=== PATIENT | female | born 1990 | race Caucasian/White ===

== ENCOUNTER → 2016-11-19 | Outpatient (CLI) | payer BC, OTHER ==
[2016-11-22 21:34] LABS: VARICELLA ZOS VIR IGM AB <=0.90 (<=0.90)
== END | disposition home or self-care (01) ==
LOC: C.LABBFT 14:36
PROVIDERS: ATTEND Internal Medicine
DX: Z00.00 Encounter for general adult medical examination without abnormal findings (principal); Z02.1 Encounter for pre-employment examination

== ENCOUNTER 2020-02-06 04:37 | Inpatient (IN) ==
--- NOTE | 2020-02-06 05:11 | Emergency Department Note ---
Impression & Plan Rich, Hallucinations ED Provider Note NAME: JAY MONZON AGE: 29 SEX: F ARRIVES VIA: Family Vehicle INFORMANT: Patient ED PROVIDER(S): Simi Nelson DO CHIEF COMPLAINT: Acute rich PLAN: Disposition: The case was signed out to awaiting bed placement MEDICAL DECISION MAKING: This is a 29-year-old female patient with a history of bipolar disorder who presents emergency department having an acute manic episode over the past 3 months. The patient is not sleeping and is having hallucinations. She is feeling hopeless and is unable to care for herself appropriately. The patient has been to 3 different facilities requesting admission to the hospital for medication adjustment. The patient's psychiatrist is suggesting inpatient psychiatric care. The case will be signed out to doctor Lutz awaiting bed placement. Triage Nursing notes reviewed and agree them. The ED psychiatric transplant case manager spoke with the patient's mother in the waiting room and she agrees that the patient requires inpatient psychiatric care Vital Signs: reviewed and unremarkable Differential diagnosis: Alcohol intoxication, mood disorder, thought disorder Laboratory studies: See below HPI: arrives for evaluation of acute rich. The patient has a history of bipolar disorder and has not been sleeping regularly for the past 3 months. She describes suffering from acute manic episodes. The patient states during this episode, she has not slept in the past 5 days and has been hallucinating. She feels very hopeless. Patient states that she has been to [facility] in [place] in the past couple of days for evaluation of the same symptoms but they have refused to admit her for inpatient psychiatric care stating that she does not meet criteria. The patient is very frustrated. She explains that her psychiatrist, Dr. Tayler Pleitez, is requesting that she be admitted for inpatient psychiatric care for acute rich. The patient does admit to drinking some alcohol last night. She occasionally does smoke marijuana to help her sleep. The patient has had previous inpatient psychiatric stays at [facility] last summer and [place] 1.5 months ago. ROS: See above HPI for pertinent positives & negatives. A total of 10 systems reviewed and were otherwise negative. 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 Extraocular eye muscles are intact, and sclera are anicteric. Nose - moist nasal mucosa without discharge. Mouth - moist buccal mucosa. Oropharynx is nonerythematous and there is no tonsillar exudate or edema noted. Neck: Supple; no thyromegaly Heart: Tachycardic rate and regular rhythm. There is a normal S1 and S2 with no murmurs, clicks, or gallops appreciated. Lungs: Clear to auscultation bilaterally with no wheezes, rales, or rhonchi. Abdomen: Soft, completely nontender, nondistended, with good bowel sounds. There are no palpable pulsatile masses or hepatosplenomegaly. There is no guarding, rigidity, or rebound noted. Extremities: No evidence of cyanosis, clubbing, or edema. There are easily palpable peripheral pulses. Skin: warm and dry with good turgor and no rashes. Psych: The patient appears manic; she smells of alcohol; she has a tangential thought process. She has an elevated affect. She makes good eye contact. She denies being suicidal or homicidal. ED COURSE: Times/Reassessments: 0455: The patient was evaluated in room A5. A complete history and physical was performed. The patient is requesting inpatient psychiatric hospitalization. Labs were drawn as above 0620: I discussed the case with the ED psychiatric transplant case manager. She had discussed the situation with the patient's mother who also agrees that the patient requires inpatient psychiatric care 0630: The case will be signed out to Dr. Lutz at change of shift awaiting bed placement. Simi Nelson DO Past Med/Surg History Social History Smoking Status: Current every day smoker Tobacco Type: E-cigarettes / Vaping Feels Safe at Home: Yes Allergies Allergies Allergy/AdvReac Type Severity Reaction Status Date / Time No Known Allergies Allergy Verified 03/03/19 08:56 Home Meds Home Medications Medication Instructions Recorded Confirmed aripiprazole [Abilify] 15 mg PO DAILY 02/06/20 02/06/20 clonazepam [Klonopin] 1 mg PO DIRECTED 02/06/20 02/06/20 hydroxyzine HCl 50 mg PO DAILY 02/06/20 02/06/20 lamotrigine [Lamictal] 200 mg PO DAILY 02/06/20 02/06/20 trazodone 50 mg PO HS 02/06/20 02/06/20 Results & Data (ED) Vital Signs Vital Signs - 24 hr 02/06/20 04:41 02/06/20 06:30 Temperature 36.4 C L Temperature Source Oral Pulse Rate 118 H Pulse Rate [Apical] 98 H Respiratory Rate 18 18 Respiratory Effort / Characteristics Non-Labored Spontaneous Respiratory Depth Normal Blood Pressure 105/70 Blood Pressure [Left Arm] 118/75 Blood Pressure Mean 81 Blood Pressure Mean [Left Arm] 89 Blood Pressure Position Sitting Pulse Oximetry 99 100 Oxygen Delivery Method Room Air Room Air Sepsis Recent Fever Within 48 Hours No Sepsis New/Unexplained Change in Mental Status No Sepsis Action Taken by Nursing No Action Required Laboratory Data Result diagrams: 02/06/20 05:10 02/06/20 05:10 Lab Results 02/06/20 02/06/20 02/06/20 Range/Units 04:50 04:50 04:50 WBC (4.8-10.8) K/uL RBC (4.2-5.4) M/uL Hgb (12.0-16.0) g/dL Hct (37-47) % MCV (80-100) fL MCH (25-34) pg MCHC (32-36) g/dL Plt Count (130-400) K/uL Immature Gran % (Auto) % Neut % (Auto) % Lymph % (Auto) % [place] % (Auto) % Eos % (Auto) % Baso % (Auto) % Neut # (Auto) (1.4-6.5) K/uL Lymph # (Auto) (1.2-3.4) K/uL [place] # (Auto) (0.11-0.59) K/uL Eos # (Auto) (0-0.5) K/uL Baso # (Auto) (0-0.2) K/uL Immature Gran # (Auto) (0.00-0.02) K/uL Sodium (136-145) mmol/L Potassium (3.5-5.1) mmol/L Chloride (98-107) mmol/L Carbon Dioxide (21-32) mmol/L Anion Gap (3-11) BUN (7-18) mg/dl Creatinine (0.6-1.2) mg/dl Est Cr Clr Drug Dosing ml/min Est GFR ( Amer) Est GFR (Non-Af Amer) BUN/Creatinine Ratio (10-20) Glucose (70-99) mg/dl Calcium (8.5-10.1) mg/dl Total Bilirubin (0.2-1) mg/dl AST (15-37) U/L ALT (12-78) U/L Alkaline Phosphatase (45-117) U/L Total Protein (6.4-8.2) gm/dl Albumin (3.4-5.0) gm/dl Globulin (2.5-4.0) gm/dl Albumin/Globulin Ratio (0.9-2) TSH (0.300-4.500) uIu/ml HCG, Qual (Negative) Urine Color Yellow Urine Appearance Clear (Clear) Urine pH 6.0 (4.5-7.5) Ur Specific [place] <= 1.005 (1.000-1.030) Urine Protein Negative (Negative) Urine Glucose (UA) Negative (Negative) Urine Ketones Negative (Negative) Urine Blood Negative (Negative) Urine Nitrite Negative (Negative) Urine Bilirubin Negative (Negative) Urine Urobilinogen Negative (Negative) Ur Leukocyte Esterase 2+ H (Negative) Urine RBC 0-4 (0-4) /hpf Urine WBC 10-30 H (0-5) /hpf Ur Epithelial Cells 20-30 H (0-5) /lpf Urine Bacteria Negative (Negative) Urine Test Negative (Negative) Salicylates (2.8-20) mg/dl Urine Opiates Screen Neg (Neg) Ur Methadone, Qual Neg (Neg) Acetaminophen (10-30) ug/ml Urine Barbiturates Neg (Neg) Ur Phencyclidine (PCP) Neg (Neg) U Amphetamin/Meth Scrn Neg (Neg) MDMA (Ecstasy) Screen Neg (Neg) U Benzodiazepines Scrn Neg (Neg) Ur Cocaine Metabolite Neg (Neg) U Marijuana (THC) Screen Pos H (Neg) Ethyl Alcohol mg/dL (0-3) mg/dl 02/06/20 02/06/20 02/06/20 Range/Units 05:10 05:10 05:10 WBC 6.84 (4.8-10.8) K/uL RBC 4.33 (4.2-5.4) M/uL Hgb 13.0 (12.0-16.0) g/dL Hct 36.9 L (37-47) % MCV 85.2 (80-100) fL MCH 30.0 (25-34) pg MCHC 35.2 (32-36) g/dL Plt Count 231 (130-400) K/uL Immature Gran % (Auto) 0.3 % Neut % (Auto) 64.2 % Lymph % (Auto) 26.8 % [place] % (Auto) 6.6 % Eos % (Auto) 1.8 % Baso % (Auto) 0.3 % Neut # (Auto) 4.40 (1.4-6.5) K/uL Lymph # (Auto) 1.83 (1.2-3.4) K/uL [place] # (Auto) 0.45 (0.11-0.59) K/uL Eos # (Auto) 0.12 (0-0.5) K/uL Baso # (Auto) 0.02 (0-0.2) K/uL Immature Gran # (Auto) 0.02 (0.00-0.02) K/uL Sodium 140 (136-145) mmol/L Potassium 3.7 (3.5-5.1) mmol/L Chloride 111 H (98-107) mmol/L Carbon Dioxide 22 (21-32) mmol/L Anion Gap 7.0 (3-11) BUN 11 (7-18) mg/dl Creatinine 0.84 (0.6-1.2) mg/dl Est Cr Clr Drug Dosing 97.0 ml/min Est GFR ( Amer) 109.6 Est GFR (Non-Af Amer) 94.6 BUN/Creatinine Ratio 12.7 (10-20) Glucose 108 H (70-99) mg/dl Calcium 8.1 L (8.5-10.1) mg/dl Total Bilirubin 0.5 (0.2-1) mg/dl AST 11 L (15-37) U/L ALT 17 (12-78) U/L Alkaline Phosphatase 56 (45-117) U/L Total Protein 7.2 (6.4-8.2) gm/dl Albumin 3.5 (3.4-5.0) gm/dl Globulin 3.7 (2.5-4.0) gm/dl Albumin/Globulin Ratio 0.9 (0.9-2) TSH 1.590 (0.300-4.500) uIu/ml HCG, Qual (Negative) Urine Color Urine Appearance (Clear) Urine pH (4.5-7.5) Ur Specific [place] (1.000-1.030) Urine Protein (Negative) Urine Glucose (UA) (Negative) Urine Ketones (Negative) Urine Blood (Negative) Urine Nitrite (Negative) Urine Bilirubin (Negative) Urine Urobilinogen (Negative) Ur Leukocyte Esterase (Negative) Urine RBC (0-4) /hpf Urine WBC (0-5) /hpf Ur Epithelial Cells (0-5) /lpf Urine Bacteria (Negative) Urine Test (Negative) Salicylates < 1.7 L (2.8-20) mg/dl Urine Opiates Screen (Neg) Ur Methadone, Qual (Neg) Acetaminophen < 2 L (10-30) ug/ml Urine Barbiturates (Neg) Ur Phencyclidine (PCP) (Neg) U Amphetamin/Meth Scrn (Neg) MDMA (Ecstasy) Screen (Neg) U Benzodiazepines Scrn (Neg) Ur Cocaine Metabolite (Neg) U Marijuana (THC) Screen (Neg) Ethyl Alcohol mg/dL (0-3) mg/dl 02/06/20 02/06/20 Range/Units 05:10 05:10 WBC (4.8-10.8) K/uL RBC (4.2-5.4) M/uL Hgb (12.0-16.0) g/dL Hct (37-47) % MCV (80-100) fL MCH (25-34) pg MCHC (32-36) g/dL Plt Count (130-400) K/uL Immature Gran % (Auto) % Neut % (Auto) % Lymph % (Auto) % [place] % (Auto) % Eos % (Auto) % Baso % (Auto) % Neut # (Auto) (1.4-6.5) K/uL Lymph # (Auto) (1.2-3.4) K/uL [place] # (Auto) (0.11-0.59) K/uL Eos # (Auto) (0-0.5) K/uL Baso # (Auto) (0-0.2) K/uL Immature Gran # (Auto) (0.00-0.02) K/uL Sodium (136-145) mmol/L Potassium (3.5-5.1) mmol/L Chloride (98-107) mmol/L Carbon Dioxide (21-32) mmol/L Anion Gap (3-11) BUN (7-18) mg/dl Creatinine (0.6-1.2) mg/dl Est Cr Clr Drug Dosing ml/min Est GFR ( Amer) Est GFR (Non-Af Amer) BUN/Creatinine Ratio (10-20) Glucose (70-99) mg/dl Calcium (8.5-10.1) mg/dl Total Bilirubin (0.2-1) mg/dl AST (15-37) U/L ALT (12-78) U/L Alkaline Phosphatase (45-117) U/L Total Protein (6.4-8.2) gm/dl Albumin (3.4-5.0) gm/dl Globulin (2.5-4.0) gm/dl Albumin/Globulin Ratio (0.9-2) TSH (0.300-4.500) uIu/ml HCG, Qual Negative (Negative) Urine Color Urine Appearance (Clear) Urine pH (4.5-7.5) Ur Specific [place] (1.000-1.030) Urine Protein (Negative) Urine Glucose (UA) (Negative) Urine Ketones (Negative) Urine Blood (Negative) Urine Nitrite (Negative) Urine Bilirubin (Negative) Urine Urobilinogen (Negative) Ur Leukocyte Esterase (Negative) Urine RBC (0-4) /hpf Urine WBC (0-5) /hpf Ur Epithelial Cells (0-5) /lpf Urine Bacteria (Negative) Urine Test (Negative) Salicylates (2.8-20) mg/dl Urine Opiates Screen (Neg) Ur Methadone, Qual (Neg) Acetaminophen (10-30) ug/ml Urine Barbiturates (Neg) Ur Phencyclidine (PCP) (Neg) U Amphetamin/Meth Scrn (Neg) MDMA (Ecstasy) Screen (Neg) U Benzodiazepines Scrn (Neg) Ur Cocaine Metabolite (Neg) U Marijuana (THC) Screen (Neg) Ethyl Alcohol mg/dL 50.0 H (0-3) mg/dl Discharge Plan Visit Data Chief Complaint: Mental Health Evaluation Stated Complaint: MANIC EPISODE ED Provider: Simi Nelson Discharge Problem: Rich, Hallucinations Forms Stand Alone Forms: My [facility], Suicide Prevention Resources Prescriptions Prescriptions: No Action clonazepam [Klonopin] 1 mg tablet 1 mg PO DIRECTED RF: 0 hydroxyzine HCl 50 mg tablet 50 mg PO DAILY RF: 0 trazodone 50 mg tablet 50 mg PO HS RF: 0 aripiprazole [Abilify] 15 mg tablet 15 mg PO DAILY RF: 0 lamotrigine [Lamictal] 200 mg tablet 200 mg PO DAILY RF: 0
[2020-02-06 05:30] LABS: Appearance Urine Clear (Clear); Bilirubin Urine Negative (Negative); Blood Urine Negative (Negative); Color Urine Yellow; Glucose Urine UA Negative (Negative); Ketones Urine Negative (Negative); Leukocyte Esterase Urine 2+ (Negative); Nitrite Urine Negative (Negative); Protein Urine Negative (Negative); Specific Gravity Urine <= 1.005 (1.000-1.030); Urobilinogen Urine Negative (Negative)
[2020-02-06 05:41] LABS: Basophils # (auto) 0.02 K/uL (0-0.2); Basophils % (auto) 0.3 %; Eosinophils # (auto) 0.12 K/uL (0-0.5); Eosinophils % (auto) 1.8 %; Hematocrit (blood only) 36.9 % (37-47); Immature Granulocytes # (auto) 0.02 K/uL (0.00-0.02); Immature Granulocytes % (auto) 0.3 %; Lymphocytes # (auto) 1.83 K/uL (1.2-3.4); Lymphocytes % (auto) 26.8 %; Mean Corpuscular Hgb Conc 35.2 g/dL (32-36); Mean Corpuscular Volume 85.2 fL (80-100); Monocytes # (auto) 0.45 K/uL (0.11-0.59); Monocytes % (auto) 6.6 %; Neutrophils % (auto) 64.2 %; Platelet Count 231 K/uL (130-400); Red Blood Count 4.33 M/uL (4.2-5.4); White Blood Count 6.84 K/uL (4.8-10.8)
[2020-02-06 05:44] LABS: Bacteria Urine Negative (Negative); Epithelial Cell Urine 20-30 /lpf (0-5); RBC Urine 0-4 /hpf (0-4)
[2020-02-06 05:53] LABS: Albumin Level 3.5 gm/dl (3.4-5.0); BUN Creatinine Ratio 12.7 (10-20); Calcium 8.1 mg/dl (8.5-10.1); Est GFR (African American) 109.6; Est GFR (Non-African American) 94.6; Potassium 3.7 mmol/L (3.5-5.1)
[2020-02-06 05:55] LABS: Pregnancy Test, Serum Negative (Negative)
[2020-02-06 05:56] LABS: Acetaminophen < 2 ug/ml (10-30); Salicylate < 1.7 mg/dl (2.8-20)
[2020-02-06 05:56] LABS: Amphetamines+Metham, Urine Neg (Neg); Barbiturates, Urine Neg (Neg); Benzodiazepine, Urine Neg (Neg); Cocaine, Urine Neg (Neg); MDMA (Ecstacy), Urine Neg (Neg); Methadone, Urine Neg (Neg); Opiate, Urine Neg (Neg); Phencyclidine, Urine Neg (Neg)
[2020-02-06 06:03] LABS: Albumin Globulin Ratio 0.9 (0.9-2); Bilirubin,Total 0.5 mg/dl (0.2-1); Globulin 3.7 gm/dl (2.5-4.0); Thyroid Stimulating Hormone 1.59 uIu/ml (0.300-4.500); Total Protein 7.2 gm/dl (6.4-8.2)
[2020-02-06 06:33] LABS: Pregnancy Test, Urine Negative (Negative)
[2020-02-06] MEDS ORDERED: clonazePAM 1 MG TAB PO STA (08:12)
[2020-02-06] MEDS ORDERED: ARIPiprazole 15 MG TAB PO STA (08:12)
[2020-02-06] MEDS ORDERED: lamoTRIgine 100 MG TAB PO STA (08:12)
[2020-02-06] MEDS ORDERED: NICOTINE 14 MG/24 HR PATCH TD STA (09:11)
[2020-02-06] MEDS ORDERED: SODIUM CHLORIDE 0.65% NA SOLN 45 ML (OCEAN) PRN (10:01)
[2020-02-06] MEDS ORDERED: ALUMINUM/MAGNESIUM SUSP 30 ML UDC PO PRN (10:01)
[2020-02-06] MEDS ORDERED: BISMUTH SUBSALICYLATE PER ML OMNICELL CHARGE PO PRN (10:01)
[2020-02-06] MEDS ORDERED: ACETAMINOPHEN 325 MG TAB PO PRN (10:01)
[2020-02-06] MEDS ORDERED: OLANZapine 5 MG TABLET PO ONE (10:51)
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
[2020-02-06] MEDS: OLANZapine 5 MG TABLET PO SCH (20:53)
[2020-02-06] MEDS: clonazePAM 1 MG TAB PO SCH (20:54)
[2020-02-06] MEDS ORDERED: TRAZODONE HCL 50 MG TAB PO SCH (22:00)
[2020-02-07] MEDS: lamoTRIgine 100 MG TAB PO SCH (08:18)
[2020-02-07] MEDS: NICOTINE 14 MG/24 HR PATCH TD SCH (08:19)
[2020-02-07] MEDS: clonazePAM 1 MG TAB PO SCH ×2 (08:19→21:12)
[2020-02-07] MEDS ORDERED: ARIPiprazole 15 MG TAB PO SCH (09:00)
[2020-02-07] MEDS: DOCUSATE SODIUM 100 MG CAP PO SCH ×2 (09:24→21:12)
--- NOTE | 2020-02-07 12:08 | Psychiatric Progress Note ---
Date of Service February 07, 2020 Impression / Recommendations Impression 29-year-old female with a history of bipolar symptomatology beginning in early teenage years who sounds to have a hyperthymic baseline, recently manic for 3 to 4 months with severe insomnia persisting for the past 5 days experiencing multimodal hallucinations, grandiosity, and requesting psychiatric hospitalization for stabilization. Presently, without acute intervention, she is at significant risk of harm due to potential morbidity associated with persistent insomnia and impaired decision-making. She presently requires inpatient psychiatric hospitalization for mood stabilization. (1) Bipolar disorder: 02/05 -Patient admitted on voluntary status to the behavioral health unit -She will be encouraged to participate in unit programming when appropriate however we will first prioritize sleep -In effort to facilitate antimanic effect of sleep acutely, she was written for 5 mg of Zyprexa now followed by Zyprexa 5 mg nightly. Risks and benefits of this medication were reviewed and accepted. -She was provided with brief psychoeducation regarding underlying bipolar illness and treatment. She is adequately mood stabilized on Abilify and Lamictal. Discussed options including further titration of Lamictal, more potent alternative to the Abilify, or conversion of Lamictal to Depakote or perhaps a lithium retrial. Hopefully she will get a good nights rest and be feeling a little more composed and consolidated tomorrow to discuss these potential treatment interventions in more detail. For now, she will be continued on her home dose of Abilify and Lamictal unchanged -Discontinue trazodone due to lack of perceived benefit and to minimize potential activating effect of serotonergic activity -We will continue the clonazepam 1 mg p.o. twice daily unchanged for now as well. She did seem to demonstrate a little psychological dependency regarding this medication -Continue home dose of hydroxyzine unchanged -She will need fasting labs ordered prior to discharge however I will defer that to another day as I do not want to have the general labor forklift operator wake her early in the morning -Patient requests family meeting with parents which will be facilitated -Coordinate care with outpatient providers 02/06 - Pt has had several doses of prn olanzapine at this time, and reports noticeable benefit from the medication. She expresses desire to switch to olanzapine as "I was taking my medication every day, it just wasn't working." Will taper aripiprazole over the next day or so, and continue prn olanzapine. Can begin titration of scheduled dosing of olanzapine as tolerated. - Pt reported feeling too anxiety/unstable to begin taper of clonazepam at this time. She expresses desire to eventually taper the medication and discontinue it altogether. - Will order fasting glucose and lipid panel for tomorrow morning. - Pt requesting a family meeting with her parents and brother be scheduled - Will need referral for outpatient therapy and proper coordination of care with her outpatient psychiatrist. 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 Chief Complaint "An hour ago I was not feeling well at all." Review of Systems Notes Constitutional: denied Cardiovascular: denied Respiratory: denied Gastrointestinal: denied Neurological: denied Psychiatric: denies symptoms other than stated above Total of at least 10 systems reviewed, pertinent positives as above and in HPI. Sleep Information Total Hours of Sleep: 5.25 Meal Information Percent Meal Consumed - Breakfast: 100 Percent Meal Consumed - Lunch: 100 Percent Meal Consumed - Dinner: 100 Nutrition Comment: per meal record Subjective Subjective Patient was seen & assessed and interval progress reviewed with treatment team. Staff report the patient slept poorly last evening, with only 4 hours of broken sleep. She will likely require a family meeting with her parents when she is able to tolerate this. Pt was interested in referrals for outpatient therapy. Pt was seen today to assess progress since admission. Pt was asked how she is doing today and stated "An hour ago I was not feeling well at all. They called the doctor, who ordered Zyprexa, and I'm much better now." Pt states that she had verbalized to staff that she was "feeling manic" and having racing thoughts. She did receive a prn of olanzapine and states the thoughts slowed and she is feeling more comfortable. Pt was unable to identify any particular thoughts during that time, but described it as "I can't take this, I can't take this. My mind just keeps saying that over and over." Since initial trials of olanzapine have been effective, we discussed beginning taper from aripiprazole to olanzapine. Pt is in favor of this stating "I take my medications every day, they just haven't been working. That's why I'm here." Pt denied SI at this time, but admits this was another reason she felt it necessary to present to the ED. Pt is still agreeable with a therapy referral, stating "I need one." She is also feeling ready for a family meeting with her parents. She states "they' re so controlling of everything, I need to talk to them." Pt denied additional concerns at this time. Physical Exam Psychiatric Orientation: alert, oriented x 3 and cooperative Apperance: appropriately dressed (casually, in scrub pants and a sweater), appropriately groomed (long blonde hair, appearing clean and well-groomed ) and appeared stated age Eye Contact: good eye contact Motor Behavior: steady gait and station and no abnormal motor movements Speech: normal rate/rhythm/volume of speech Affect: + anxious affect and mood congruent with affect Mood: + anxious mood ("better now, but my mind was just racing") Thought Process: goal directed thought process and clear/coherent thought process Thought Content: reality based without delusions; no hopelessness Suicidal Thoughts: denies suicidal thoughts Homicidal Thoughts: denies homicidal thoughts Hallucinations: no auditory hallucinations and no visual hallucinations Cognition: attention grossly intact and language grossly intact Insight: + limited insight Judgement: + limited judgement Vital Signs (Past 24 Hours) Last Vital Signs Temp 36.7 C 02/07/20 05:49 Pulse 102 H 02/07/20 05:49 Resp 16 02/07/20 05:49 BP 111/76 02/07/20 05:49 Pulse Ox 99 02/06/20 10:15 . Results & Data ([facility]) Current Inpatient Medications Current Inpatient Medications: Current Inpatient Medications Acetaminophen (Acetaminophen 325 Mg Tab) 650 mg PO Q4H PRN PRN Reason: Headache or Minor Fever Stop: 03/07/20 10:00 Al Hydrox/Mg Hydrox/Simethicone (Aluminum/Magnesium Susp 30 Ml Udc) 30 ml PO Q4H PRN PRN Reason: GI Upset Stop: 03/07/20 10:00 Aripiprazole (Aripiprazole 15 Mg Tab) 15 mg PO QAM [facility] Stop: 03/08/20 08:59 Last Admin: 02/07/20 08:18 Dose: 15 mg Documented by: Bismuth Subsalicylate (Bismuth Subsalicylate Per Ml Omnicell Charge) 15 ml PO PRN PRN PRN Reason: Loose Stool Stop: 03/07/20 10:00 Clonazepam (Clonazepam 1 Mg Tab) 1 mg PO BID [facility] Stop: 03/07/20 20:59 Last Admin: 02/07/20 08:19 Dose: 1 mg Documented by: Docusate Sodium (Docusate Sodium 100 Mg Cap) 100 mg PO BID [facility] Stop: 03/08/20 08:59 Last Admin: 02/07/20 09:24 Dose: 100 mg Documented by: Hydroxyzine HCl (Hydroxyzine Hcl 25 Mg Tab) 50 mg PO HSZ PRN PRN Reason: Insomnia Stop: 03/07/20 10:00 Last Admin: 02/07/20 01:40 Dose: 50 mg Documented by: Hydroxyzine HCl (Hydroxyzine Hcl 25 Mg Tab) 25 mg PO Q4H PRN PRN Reason: Anxiety Stop: 03/07/20 10:00 Last Admin: 02/07/20 09:37 Dose: 25 mg Documented by: Lamotrigine (Lamotrigine 100 Mg Tab) 200 mg PO QAM [facility] Stop: 03/08/20 08:59 Last Admin: 02/07/20 08:18 Dose: 200 mg Documented by: Magnesium Hydroxide (Magnesium Hydroxide Susp 30 Ml Udc) 30 ml PO DAILY PRN PRN Reason: Constipation Stop: 03/07/20 10:00 Miscellaneous (Remove Nicoderm Patch) 1 ea N/A DAILY@59 [facility] Stop: 03/08/20 08:58 Last Admin: 02/07/20 08:23 Dose: 1 ea Documented by: Nicotine (Nicotine 14 Mg/24 Hr Patch) [facility] Stop: 03/08/20 08:59 Last Admin: 02/07/20 08:19 Dose: 14 mg Documented by: Nicotine Polacrilex (Nicotine Polacrilex 2 Mg Gum) 1 piece MT Q2H PRN PRN Reason: NICOTINE CRAVINGS Stop: 03/07/20 10:05 Olanzapine (Olanzapine 5 Mg Tablet) 5 mg PO HS [facility] Stop: 03/07/20 21:59 Last Admin: 02/06/20 20:53 Dose: 5 mg Documented by: Olanzapine (Olanzapine 2.5 Mg Tab) 2.5 mg PO Q4H PRN PRN Reason: rich/anxiety Stop: 03/08/20 11:29 Sodium Chloride (Sodium Chloride 0.65% Na Soln 45 Ml ([place])) 1 - 2 sprays NA PRN PRN PRN Reason: Nasal Dryness/Congestion Stop: 03/07/20 10:00 Mental Health & Subst Abuse Tx Psychiatrist Name of Psychiatrist: Dr. Maite Ambriz Therapist Name of Therapist: None Instructional Systems Design Consultant Name of Instructional Systems Design Consultant: None Post Discharge Appointments Primary Care Physician Name Of Family Doctor: Dr. Marlene Ambriz
[2020-02-07] MEDS: OLANZAPINE 2.5 MG TAB PO PRN ×2 (12:32→17:17)
[2020-02-07] MEDS: OLANZapine 5 MG TABLET PO SCH (21:11)
[2020-02-08] MEDS: OLANZAPINE 2.5 MG TAB PO PRN ×4 (03:07→17:19)
[2020-02-08 08:28] LABS: Glucose Fasting 94 mg/dl (70-99)
[2020-02-08 08:34] LABS: Chol HDL Ratio 3; Cholesterol 136 mg/dl (0-200); HDL Cholesterol 54 mg/dl; LDL Cholesterol Calculated 55 mg/dl; Triglycerides 133 mg/dl (0-150); VLDL Cholesterol 27 mg/dl
[2020-02-08] MEDS ORDERED: ARIPiprazole 10 MG TAB PO SCH (09:00)
[2020-02-08] MEDS: lamoTRIgine 100 MG TAB PO SCH (09:31)
[2020-02-08] MEDS: DOCUSATE SODIUM 100 MG CAP PO SCH ×3 (09:31→20:57)
[2020-02-08] MEDS: clonazePAM 1 MG TAB PO SCH ×2 (09:31→20:57)
[2020-02-08] MEDS: NICOTINE 14 MG/24 HR PATCH TD SCH (09:32)
[2020-02-08] MEDS: MAGNESIUM HYDROXIDE SUSP 30 ML UDC PO PRN (09:53)
--- NOTE | 2020-02-08 13:15 | Psychiatric Progress Note ---
Date of Service February 08, 2020 Impression / Recommendations Impression 29-year-old female with a history of bipolar symptomatology beginning in early teenage years who sounds to have a hyperthymic baseline, recently manic for 3 to 4 months with severe insomnia persisting for the past 5 days experiencing multimodal hallucinations, grandiosity, and requesting psychiatric hospitalization for stabilization. Presently, without acute intervention, she is at significant risk of harm due to potential morbidity associated with persistent insomnia and impaired decision-making. She presently requires inpatient psychiatric hospitalization for mood stabilization. (1) Bipolar disorder: 02/05 -Patient admitted on voluntary status to the behavioral health unit -She will be encouraged to participate in unit programming when appropriate however we will first prioritize sleep -In effort to facilitate antimanic effect of sleep acutely, she was written for 5 mg of Zyprexa now followed by Zyprexa 5 mg nightly. Risks and benefits of this medication were reviewed and accepted. -She was provided with brief psychoeducation regarding underlying bipolar illness and treatment. She is adequately mood stabilized on Abilify and Lamictal. Discussed options including further titration of Lamictal, more potent alternative to the Abilify, or conversion of Lamictal to Depakote or perhaps a lithium retrial. Hopefully she will get a good nights rest and be feeling a little more composed and consolidated tomorrow to discuss these potential treatment interventions in more detail. For now, she will be continued on her home dose of Abilify and Lamictal unchanged -Discontinue trazodone due to lack of perceived benefit and to minimize potential activating effect of serotonergic activity -We will continue the clonazepam 1 mg p.o. twice daily unchanged for now as well. She did seem to demonstrate a little psychological dependency regarding this medication -Continue home dose of hydroxyzine unchanged -She will need fasting labs ordered prior to discharge however I will defer that to another day as I do not want to have the equipment operator/laborer/supervisor wake her early in the morning -Patient requests family meeting with parents which will be facilitated -Coordinate care with outpatient providers 02/06 - Pt has had several doses of prn olanzapine at this time, and reports noticeable benefit from the medication. She expresses desire to switch to olanzapine as "I was taking my medication every day, it just wasn't working." Will taper aripiprazole over the next day or so, and continue prn olanzapine. Can begin titration of scheduled dosing of olanzapine as tolerated. - Pt reported feeling too anxiety/unstable to begin taper of clonazepam at this time. She expresses desire to eventually taper the medication and discontinue it altogether. - Will order fasting glucose and lipid panel for tomorrow morning. - Pt requesting a family meeting with her parents and brother be scheduled - Will need referral for outpatient therapy and proper coordination of care with her outpatient psychiatrist. 02/07 - Titrating olanzapine to 7.5mg this evening, will reduce aripiprazole to 5mg tomorrow morning and then discontinue. Continue to offer prn olanzapine for racing thoughts and other symptoms of rich/mood instability. - Fasting glucose and lipid panel reviewed - all values WNL - Family meeting scheduled with parents and brother for tomorrow afternoon - Continue to encourage attendance of group and recreational programming Inventory Assets Strengths: Help seeking, intelligent Needs: Medication management Risk Factors Assessment Male: No : Yes Do You Have Access To A Gun?: No Health Problems: No Mental Health Diagnoses: Yes Substance Use Disorders: No Previous Attempt: No Family History of Suicide: No Previous Psychiatric Hospitalization: Yes Hopelessness: Yes Smoker: Yes Protective Factors Assessment Ep[employer] Beliefs: No : No Responsible for Young Children: No 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 Chief Complaint "I feel so much better. Zyprexa has changed my life!" Review of Systems Notes Constitutional: reports improved sleep Cardiovascular: denied Respiratory: denied Gastrointestinal: denied Neurological: denied Psychiatric: denies symptoms other than stated above Total of at least 10 systems reviewed, pertinent positives as above and in HPI. Sleep Information Total Hours of Sleep: 5.25 Meal Information Percent Meal Consumed - Breakfast: 100 Percent Meal Consumed - Lunch: 100 Percent Meal Consumed - Dinner: 100 Nutrition Comment: per meal record Subjective Subjective Patient was seen & assessed and interval progress reviewed with nursing and social work. Staff report the patient slept 5.25 hours last evening and described her sleep as poor, having received numerous prn doses of hydroxyzine and olanzapine. Pt reported to staff that she had been seeing a woman in her room. She continues to have arguments with her parents over the phone. Pt rated her mood a 2/10 and "angry" last evening, related to these arguments. Pt was seen today to assess progress since admission. Pt states she is feeling "so much better. Daviderexa has changed my life!" Pt is now stating that she feels her sleep has improved and is noticing resolution of racing thoughts. She spends much of our conversation focused on various concerns related to family dynamics. Pt states "they are mad at me because I am not going home", patient claiming she will be staying with a friend when she is discharged. Pt states "my dad freaked out about this and is now saying that I'm building a case against my family and they don't appreciate this." Pt was encouraged to write down a few points that she feels will be most productive to review during her family meeting tomorrow. Pt denies side effects related to medication adjustments and continues to be willing to cross-taper to monotherapy on olanzapine. Pt denies SI/HI as well as other questions or concerns at this time. Physical Exam Psychiatric Orientation: alert, oriented x 3 and cooperative Apperance: appropriately dressed (though somewhat bizarrely, patient is wearing sweatpants over scrub pants), appropriately groomed and appeared stated age Eye Contact: good eye contact Motor Behavior: steady gait and station and no abnormal motor movements Speech: normal rate/rhythm/volume of speech (rambling at times, speech remains somewhat pressured) Affect: euthymic affect and mood congruent with affect Mood: no depressed mood ("so much better") Thought Process: goal directed thought process, clear/coherent thought process and + circumstantial thought process Thought Content: + preoccupation (with various family stressors); no delusions, no hopelessness and no worthlessness Suicidal Thoughts: denies suicidal thoughts Homicidal Thoughts: denies homicidal thoughts Hallucinations: no auditory hallucinations and no visual hallucinations though reported to staff last evening that she was seeing a woman in her room Cognition: attention grossly intact and language grossly intact Estimated Intelligence: consistent with education level Insight: + impaired insight Judgement: + impaired judgement Vital Signs (Past 24 Hours) Last Vital Signs Temp 36.8 C 02/08/20 06:00 Pulse 111 H 02/08/20 06:44 Resp 17 02/08/20 06:00 BP 100/67 02/08/20 06:44 Pulse Ox 99 08/16/20 10:15 . Results & Data ([facility]) Laboratory Results Laboratory Results - last 24 hr 02/08/20 07:38 Fasting Glucose 94 Triglycerides 133 Cholesterol 136 LDL Cholesterol, Calc 55 VLDL Cholesterol, Calc 27 HDL Cholesterol 54 Cholesterol/HDL Ratio 3 Current Inpatient Medications Current Inpatient Medications: Current Inpatient Medications Acetaminophen (Acetaminophen 325 Mg Tab) 650 mg PO Q4H PRN PRN Reason: Headache or Minor Fever Stop: 03/07/20 10:00 Al Hydrox/Mg Hydrox/Simethicone (Aluminum/Magnesium Susp 30 Ml Udc) 30 ml PO Q4H PRN PRN Reason: GI Upset Stop: 03/07/20 10:00 Aripiprazole (Aripiprazole 10 Mg Tab) 10 mg PO QAM [facility] Stop: 03/09/20 08:59 Last Admin: 02/08/20 09:31 Dose: 10 mg Documented by: Bismuth Subsalicylate (Bismuth Subsalicylate Per Ml Omnicell Charge) 15 ml PO PRN PRN PRN Reason: Loose Stool Stop: 03/07/20 10:00 Clonazepam (Clonazepam 1 Mg Tab) 1 mg PO BID [facility] Stop: 03/07/20 20:59 Last Admin: 02/08/20 09:31 Dose: 1 mg Documented by: Docusate Sodium (Docusate Sodium 100 Mg Cap) 100 mg PO BID [facility] Stop: 03/08/20 08:59 Last Admin: 02/08/20 09:41 Dose: Not Given Documented by: Hydroxyzine HCl (Hydroxyzine Hcl 25 Mg Tab) 50 mg PO HSZ PRN PRN Reason: Insomnia Stop: 03/07/20 10:00 Last Admin: 02/07/20 23:16 Dose: 50 mg Documented by: Hydroxyzine HCl (Hydroxyzine Hcl 25 Mg Tab) 25 mg PO Q4H PRN PRN Reason: Anxiety Stop: 03/07/20 10:00 Last Admin: 02/07/20 18:48 Dose: 25 mg Documented by: Lamotrigine (Lamotrigine 100 Mg Tab) 200 mg PO QAM [facility] Stop: 03/08/20 08:59 Last Admin: 02/08/20 09:31 Dose: 200 mg Documented by: Magnesium Hydroxide (Magnesium Hydroxide Susp 30 Ml Udc) 30 ml PO DAILY PRN PRN Reason: Constipation Stop: 03/07/20 10:00 Last Admin: 02/08/20 09:53 Dose: 30 ml Documented by: Miscellaneous (Remove Nicoderm Patch) 1 ea N/A DAILY@0859 [facility] Stop: 03/08/20 08:58 Last Admin: 02/08/20 09:44 Dose: Not Given Documented by: Nicotine (Nicotine 14 Mg/24 Hr Patch) 14 mg TD QAM [facility] Stop: 03/08/20 08:59 Last Admin: 02/08/20 09:32 Dose: 14 mg Documented by: Nicotine Polacrilex (Nicotine Polacrilex 2 Mg Gum) 1 piece MT Q2H PRN PRN Reason: NICOTINE CRAVINGS Stop: 03/07/20 10:05 Olanzapine (Olanzapine 5 Mg Tablet) 5 mg PO HS [facility] Stop: 03/07/20 21:59 Last Admin: 02/07/20 21:11 Dose: 5 mg Documented by: Olanzapine (Olanzapine 2.5 Mg Tab) 2.5 mg PO Q4H PRN PRN Reason: rich/anxiety Stop: 03/08/20 11:29 Last Admin: 02/08/20 09:53 Dose: 2.5 mg Documented by: Sodium Chloride (Sodium Chloride 0.65% Na Soln 45 Ml ([place])) 1 - 2 sprays NA PRN PRN PRN Reason: Nasal Dryness/Congestion Stop: 03/07/20 10:00 Mental Health & Subst Abuse Tx Psychiatrist Name of Psychiatrist: Dr. Maite Ambriz Therapist Name of Therapist: None Energy Rater Name of Energy Rater: None Post Discharge Appointments Primary Care Physician Name Of Family Doctor: Dr. Marlene Ambriz
[2020-02-08] MEDS: NICOTINE POLACRILEX 2 MG GUM MT PRN ×2 (18:20→21:03)
[2020-02-08 20:58] LABS: Marijuana Quant, GCMS Urine 78 ng/mL (<5)
[2020-02-08] MEDS ORDERED: OLANZapine 5 MG TABLET PO SCH (22:00)
[2020-02-09] MEDS: OLANZAPINE 2.5 MG TAB PO PRN ×5 (01:41→23:58)
[2020-02-09] MEDS: NICOTINE POLACRILEX 2 MG GUM MT PRN ×5 (05:57→21:49)
[2020-02-09] MEDS: clonazePAM 1 MG TAB PO SCH ×2 (07:43→20:54)
[2020-02-09] MEDS: DOCUSATE SODIUM 100 MG CAP PO SCH ×2 (07:43→20:54)
[2020-02-09] MEDS: lamoTRIgine 100 MG TAB PO SCH (07:44)
[2020-02-09] MEDS: NICOTINE 14 MG/24 HR PATCH TD SCH (07:49)
--- NOTE | 2020-02-09 08:36 | Psychiatric Progress Note ---
Date of Service February 09, 2020 Impression / Recommendations Impression 29-year-old female with a history of bipolar symptomatology beginning in early teenage years who sounds to have a hyperthymic baseline, recently manic for 3 to 4 months with severe insomnia persisting for the past 5 days experiencing multimodal hallucinations, grandiosity, and requesting psychiatric hospitalization for stabilization. Presently, without acute intervention, she is at significant risk of harm due to morbidity associated with persistent insomnia, psychotic symptoms, and impaired decision-making. She presently requires inpatient psychiatric hospitalization for mood stabilization. (1) Bipolar disorder: 02/05 -Patient admitted on voluntary status to the behavioral health unit -She will be encouraged to participate in unit programming when appropriate however we will first prioritize sleep -In effort to facilitate antimanic effect of sleep acutely, she was written for 5 mg of Zyprexa now followed by Zyprexa 5 mg nightly. Risks and benefits of this medication were reviewed and accepted. -She was provided with brief psychoeducation regarding underlying bipolar illness and treatment. She is adequately mood stabilized on Abilify and Lamictal. Discussed options including further titration of Lamictal, more potent alternative to the Abilify, or conversion of Lamictal to Depakote or perhaps a lithium retrial. Hopefully she will get a good nights rest and be feeling a little more composed and consolidated tomorrow to discuss these potential treatment interventions in more detail. For now, she will be continued on her home dose of Abilify and Lamictal unchanged -Discontinue trazodone due to lack of perceived benefit and to minimize potential activating effect of serotonergic activity -We will continue the clonazepam 1 mg p.o. twice daily unchanged for now as well. She did seem to demonstrate a little psychological dependency regarding this medication -Continue home dose of hydroxyzine unchanged -She will need fasting labs ordered prior to discharge however I will defer that to another day as I do not want to have the laborer bituminous paving wake her early in the morning -Patient requests family meeting with parents which will be facilitated -Coordinate care with outpatient providers 02/06 - Pt has had several doses of prn olanzapine at this time, and reports noticeable benefit from the medication. She expresses desire to switch to olanzapine as "I was taking my medication every day, it just wasn't working." Will taper aripiprazole over the next day or so, and continue prn olanzapine. Can begin titration of scheduled dosing of olanzapine as tolerated. - Pt reported feeling too anxiety/unstable to begin taper of clonazepam at this time. She expresses desire to eventually taper the medication and discontinue it altogether. - Will order fasting glucose and lipid panel for tomorrow morning. - Pt requesting a family meeting with her parents and brother be scheduled - Will need referral for outpatient therapy and proper coordination of care with her outpatient psychiatrist. 02/07 - Titrating olanzapine to 7.5mg this evening, will reduce aripiprazole to 5mg tomorrow morning and then discontinue. Continue to offer prn olanzapine for racing thoughts and other symptoms of rich/mood instability. - Fasting glucose and lipid panel reviewed - all values WNL - Family meeting scheduled with parents and brother for tomorrow afternoon - Continue to encourage attendance of group and recreational programming 02/08 -Increase olanzapine to 10 mg at bedtime to target mood stabilization and sleep, and discontinue aripiprazole. -Family meeting with parents today. -Contacted outpatient psychiatrist Dr. Tayler Lam and coordinated care. Patient being referred for psychotherapy. 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 Chief Complaint "She's just leaving, that's why I am crying". Review of Systems Notes Reports constipation, last bowel movement yesterday with milk of magnesia which has been helpful. Sleep Information Total Hours of Sleep: 4.75 Meal Information Percent Meal Consumed - Breakfast: 100 Percent Meal Consumed - Lunch: 100 Percent Meal Consumed - Dinner: 100 Nutrition Comment: per meal record Subjective Subjective Patient was seen & assessed and interval progress reviewed with treatment team. Staff report she is attending groups and participating, is supportive of peers, but demonstrates poor insight into her own illness. She tries to talk for other patients in groups. She has a meeting with her parents today, but is telling staff she wants to move out of her parents' house and move in with her boyfriend. She has been requesting and receiving multiple prns for rich and insomnia, and is still only sleeping <5 hours/night. On my assessment, the patient is initially tearful, stating she is sad because a female peer is being discharged. She quickly brightens, and states that her mood is "really well, the Zyprexa is really helping call me down, with racing thoughts, hallucinations." She states that she had not slept for 5 days prior to admission, and is now sleeping at least a few hours each night, so views that is an improvement. She states that her mood is much improved from admission, stating she was a 1 on admission and is now on 01/30. She denies thoughts of harming herself or others. She feels her thoughts are cleared, and feels she would be ready for discharge in the next couple of days. She states that she is very upset at her parents because they are too controlling, and plans to move in with a friend and look for an apartment. 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 She wants to work on sleep hygiene while here, noting that she is still unable to sleep through the night and has trouble falling back asleep when she wakes up. She does think the Zyprexa has helped her with sleep during the initial part of the night and is willing to increase the dose. Coordinated with Dr. Aquino, who reports patient has been challenging to treat due to noncompliance with medications, stopping them in order to drink alcohol. She has been hypomanic for some time, with worsening symptoms of rich over the past 2 weeks. She has not been sleeping, starting many projects, hypersexual, and impulsive. Physical Exam Psychiatric Orientation: alert and cooperative Apperance: + inappropriately dressed Dressed in layers -scrub pants under sweatpants, longsleeved sweater, flip- flops. Long blond hair appears clean but is unbrushed. No make-up. Seated on the edge of the bed in no acute distress. Eye Contact: good eye contact Motor Behavior: steady gait and station and no abnormal motor movements Mildly pressured, frequently interrupts. And rapidly from crying to euthymic "Really good." Mild loosening Suicidal Thoughts: denies suicidal thoughts Homicidal Thoughts: denies homicidal thoughts Hallucinations: no auditory hallucinations and no visual hallucinations Cognition: recent memory grossly intact Estimated Intelligence: consistent with education level Insight: + fair insight Judgement: + limited judgement Vital Signs (Past 24 Hours) Last Vital Signs Temp 36.6 C 02/09/20 06:42 Pulse 109 H 02/09/20 06:44 Resp 18 02/09/20 06:42 BP 108/70 02/09/20 06:44 Pulse Ox 99 02/06/20 10:15 . Results & Data ([facility]) Laboratory Results Laboratory Results - last 24 hr 02/06/20 02/08/20 04:50 07:38 Triglycerides 133 Cholesterol 136 LDL Cholesterol, Calc 55 VLDL Cholesterol, Calc 27 HDL Cholesterol 54 Cholesterol/HDL Ratio 3 U Marijuana THC Carboxy 78 H Drug Screen Comment SEE NOTE Current Inpatient Medications Current Inpatient Medications: Current Inpatient Medications Acetaminophen (Acetaminophen 325 Mg Tab) 650 mg PO Q4H PRN PRN Reason: Headache or Minor Fever Stop: 03/07/20 10:00 Al Hydrox/Mg Hydrox/Simethicone (Aluminum/Magnesium Susp 30 Ml Udc) 30 ml PO Q4H PRN PRN Reason: GI Upset Stop: 03/07/20 10:00 Aripiprazole (Aripiprazole 5 Mg Tab) 5 mg PO QAM [facility] Stop: 03/10/20 08:59 Last Admin: 02/09/20 07:44 Dose: 5 mg Documented by: Bismuth Subsalicylate (Bismuth Subsalicylate Per Ml Omnicell Charge) 15 ml PO PRN PRN PRN Reason: Loose Stool Stop: 03/07/20 10:00 Clonazepam (Clonazepam 1 Mg Tab) 1 mg PO BID [facility] Stop: 03/07/20 20:59 Last Admin: 02/09/20 07:43 Dose: 1 mg Documented by: Docusate Sodium (Docusate Sodium 100 Mg Cap) 100 mg PO BID [facility] Stop: 03/08/20 08:59 Last Admin: 02/09/20 07:43 Dose: 100 mg Documented by: Hydroxyzine HCl (Hydroxyzine Hcl 25 Mg Tab) 50 mg PO HSZ PRN PRN Reason: Insomnia Stop: 03/07/20 10:00 Last Admin: 02/09/20 03:18 Dose: 50 mg Documented by: Hydroxyzine HCl (Hydroxyzine Hcl 25 Mg Tab) 25 mg PO Q4H PRN PRN Reason: Anxiety Stop: 03/07/20 10:00 Last Admin: 02/08/20 19:54 Dose: 25 mg Documented by: Lamotrigine (Lamotrigine 100 Mg Tab) 200 mg PO QAM [facility] Stop: 03/08/20 08:59 Last Admin: 02/09/20 07:44 Dose: 200 mg Documented by: Magnesium Hydroxide (Magnesium Hydroxide Susp 30 Ml Udc) 30 ml PO DAILY PRN PRN Reason: Constipation Stop: 03/07/20 10:00 Last Admin: 02/08/20 09:53 Dose: 30 ml Documented by: Miscellaneous (Remove Nicoderm Patch) 1 ea N/A DAILY@0859 [facility] Stop: 03/08/20 08:58 Last Admin: 02/09/20 07:49 Dose: 1 ea Documented by: Nicotine (Nicotine 14 Mg/24 Hr Patch) [facility] [place]: 03/08/20 08:59 Last Admin: 02/09/20 07:49 Dose: 14 mg Documented by: Nicotine Polacrilex (Nicotine Polacrilex 2 Mg Gum) 1 piece MT Q2H PRN PRN Reason: NICOTINE CRAVINGS Stop: 03/07/20 10:05 Last Admin: 02/09/20 05:57 Dose: 1 piece Documented by: Olanzapine (Olanzapine 2.5 Mg Tab) 2.5 mg PO Q4H PRN PRN Reason: rich/anxiety Stop: 03/08/20 11:29 Last Admin: 02/09/20 05:43 Dose: 2.5 mg Documented by: Olanzapine (Olanzapine 5 Mg Tablet) 7.5 mg PO HS [facility] Stop: 03/09/20 21:59 Last Admin: 02/08/20 20:58 Dose: 7.5 mg Documented by: Sodium Chloride (Sodium Chloride 0.65% Na Soln 45 Ml ([place])) 1 - 2 sprays NA PRN PRN PRN Reason: Nasal Dryness/Congestion Stop: 03/07/20 10:00 Mental Health & Subst Abuse Tx Psychiatrist Name of Psychiatrist: Dr. Maite Ambriz Therapist Name of Therapist: None Particle Board Supervisor Name of Particle Board Supervisor: None Post Discharge Appointments Primary Care Physician Name Of Family Doctor: Dr. Marlene Ambriz
[2020-02-09] MEDS ORDERED: ARIPiprazole 5 MG TAB PO SCH (09:00)
[2020-02-09] MEDS: OLANZapine 10 MG TAB PO SCH (20:54)
[2020-02-10] MEDS: OLANZAPINE 2.5 MG TAB PO PRN ×2 (07:00→14:57)
[2020-02-10] MEDS: clonazePAM 1 MG TAB PO SCH (08:39)
[2020-02-10] MEDS: lamoTRIgine 100 MG TAB PO SCH (08:39)
[2020-02-10] MEDS: NICOTINE 14 MG/24 HR PATCH TD SCH (08:39)
[2020-02-10] MEDS: DOCUSATE SODIUM 100 MG CAP PO SCH ×2 (08:39→20:59)
[2020-02-10] MEDS: NICOTINE POLACRILEX 2 MG GUM MT PRN ×5 (08:49→21:51)
--- NOTE | 2020-02-10 12:09 | Psychiatric Progress Note ---
Date of Service February 10, 2020 Impression / Recommendations Impression 29-year-old female with a history of bipolar symptomatology beginning in early teenage years who sounds to have a hyperthymic baseline, recently manic for 3 to 4 months with severe insomnia persisting for the past 5 days experiencing multimodal hallucinations, grandiosity, and requesting psychiatric hospitalization for stabilization. Presently, without acute intervention, she is at significant risk of harm due to morbidity associated with persistent insomnia, psychotic symptoms, and impaired decision-making. She presently requires inpatient psychiatric hospitalization for mood stabilization. (1) Bipolar disorder: 02/05 -Patient admitted on voluntary status to the behavioral health unit -She will be encouraged to participate in unit programming when appropriate however we will first prioritize sleep -In effort to facilitate antimanic effect of sleep acutely, she was written for 5 mg of Zyprexa now followed by Zyprexa 5 mg nightly. Risks and benefits of this medication were reviewed and accepted. -She was provided with brief psychoeducation regarding underlying bipolar illness and treatment. She is adequately mood stabilized on Abilify and Lamictal. Discussed options including further titration of Lamictal, more potent alternative to the Abilify, or conversion of Lamictal to Depakote or perhaps a lithium retrial. Hopefully she will get a good nights rest and be feeling a little more composed and consolidated tomorrow to discuss these potential treatment interventions in more detail. For now, she will be continued on her home dose of Abilify and Lamictal unchanged -Discontinue trazodone due to lack of perceived benefit and to minimize potential activating effect of serotonergic activity -We will continue the clonazepam 1 mg p.o. twice daily unchanged for now as well. She did seem to demonstrate a little psychological dependency regarding this medication -Continue home dose of hydroxyzine unchanged -She will need fasting labs ordered prior to discharge however I will defer that to another day as I do not want to have the laborer beam house wake her early in the morning -Patient requests family meeting with parents which will be facilitated -Coordinate care with outpatient providers 02/06 - Pt has had several doses of prn olanzapine at this time, and reports noticeable benefit from the medication. She expresses desire to switch to olanzapine as "I was taking my medication every day, it just wasn't working." Will taper aripiprazole over the next day or so, and continue prn olanzapine. Can begin titration of scheduled dosing of olanzapine as tolerated. - Pt reported feeling too anxiety/unstable to begin taper of clonazepam at this time. She expresses desire to eventually taper the medication and discontinue it altogether. - Will order fasting glucose and lipid panel for tomorrow morning. - Pt requesting a family meeting with her parents and brother be scheduled - Will need referral for outpatient therapy and proper coordination of care with her outpatient psychiatrist. 02/07 - Titrating olanzapine to 7.5mg this evening, will reduce aripiprazole to 5mg tomorrow morning and then discontinue. Continue to offer prn olanzapine for racing thoughts and other symptoms of rich/mood instability. - Fasting glucose and lipid panel reviewed - all values WNL - Family meeting scheduled with parents and brother for tomorrow afternoon - Continue to encourage attendance of group and recreational programming 02/08 -Increase olanzapine to 10 mg at bedtime to target mood stabilization and sleep, and discontinue aripiprazole. -Family meeting with parents today. -Contacted outpatient psychiatrist Dr. Tayler Lam and coordinated care. Patient being referred for psychotherapy. 02/09 - Continue olanzapine at 10mg qHS - patient continues to utilized prn dosing of olanzapine. We discussed potential to track patterns of dosing to added scheduled doses of the medication in the future. - Pt agreeable with beginning clonazepam taper at this time. Will reduce clonazepam to 0.5mg BID, with discuss that taper to discontinuation is being encouraged. - Reviewed strong recommendation for medication compliance, specifically with concerns for serious side effects related to intermittent dosing of high-dose lamotrigine. Pt maintains she is compliant with medications. - Family meeting held yesterday via phone with parents and brother - patient feels it was helpful and supportive. - Discussed recommendation that patient not begin her new job until she is cleared to do so by her outpatient psychiatrist - Still need to solidify appointment with outpatient psychiatrist and set-up treatment with an outpatient therapist Inventory Assets Strengths: Help seeking, intelligent Needs: Medication management Risk Factors Assessment Male: No : Yes Do You Have Access To A Gun?: No Health Problems: No Mental Health Diagnoses: Yes Substance Use Disorders: No Previous Attempt: No Family History of Suicide: No Previous Psychiatric Hospitalization: Yes Hopelessness: Yes Smoker: Yes Protective Factors Assessment Scientologist Beliefs: No : No Responsible for Young Children: No 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 Chief Complaint "The meeting went really well." Review of Systems Notes Constitutional: perceives that her sleep has been much improved Cardiovascular: denied Respiratory: denied Gastrointestinal: denied Neurological: denied Psychiatric: denies symptoms other than stated above Total of at least 10 systems reviewed, pertinent positives as above and in HPI. Sleep Information Total Hours of Sleep: 5.5 Meal Information Percent Meal Consumed - Breakfast: 100 Percent Meal Consumed - Lunch: 90 Percent Meal Consumed - Dinner: 100 Nutrition Comment: per meal record Subjective Subjective Patient was seen & assessed and interval progress reviewed with nursing and social work. Staff report the patient has been participating in group programming. Although the patient is reporting significant mood improvement, staff continues to describe her as expansive with poor boundaries. Pt has been utilizing frequent as needed doses of olanzapine for racing thoughts. Family meeting was held with parents yesterday, who are accepting of patient's plan to live with a friend on discharge. Pt was seen today to assess progress since admission. Pt states "the meeting went really well." Pt states that a lot of positive topics were discussed. Although she recognizes her parents are not supporting her decision to live with a friend on discharge, she is happy they are at least accepting of the idea. She reports they have discussed tools the patient can utilize to assist with communication and demonstrate stability - primarily frequent check-ins and not consuming alcohol. Pt states she is on board with these things. We again discussed medication compliance, specifically as it relates to risk of serious side effects with inconsistent dosing of lamotrigine. Pt is aware of associated risks and maintains that she has been consistent with her medications. We discussed utilization of a pill organizer to track compliance for both patient and her parents to observe. We also discussed concern related to her jumping into a new job before she is able to demonstrate mental stability. Pt states she is planning to attend the orientation day, but push her start-date back 2 weeks. This provider explained our recommendation that patient start working until she is cleared by her outpat ient psychiatrist. Pt admits to feeling "at 95% today, I really do feel better." Pt reports she is hopeful for discharge tomorrow. We discussed need to solidify aftercare and continued medication adjustments, which may push back her anticipated discharge date. Otherwise, patient denies needs or concerns at this time. Physical Exam Psychiatric Orientation: alert, oriented x 3 and cooperative Apperance: appropriately dressed, appropriately groomed and appeared stated age Eye Contact: good eye contact Motor Behavior: steady gait and station and no abnormal motor movements Speech: normal rate/rhythm/volume of speech Affect: euthymic affect (though continues to be expansive and intrusive at times) Mood: no depressed mood and no anxious mood "I'm at 95% today" Thought Process: goal directed thought process and clear/coherent thought process Thought Content: reality based without delusions Suicidal Thoughts: denies suicidal thoughts Homicidal Thoughts: denies homicidal thoughts Hallucinations: no auditory hallucinations and no visual hallucinations Cognition: recent memory grossly intact, attention grossly intact and language grossly intact Estimated Intelligence: consistent with education level Insight: + fair insight Judgement: + fair judgement Vital Signs (Past 24 Hours) Last Vital Signs Temp 37.2 C 02/10/20 06:30 Pulse 101 H 02/10/20 06:30 Resp 18 02/10/20 06:30 BP 107/74 02/10/20 06:30 Pulse Ox 99 02/06/20 10:15 . Results & Data ([facility]) Current Inpatient Medications Current Inpatient Medications: Current Inpatient Medications Acetaminophen (Acetaminophen 325 Mg Tab) 650 mg PO Q4H PRN PRN Reason: Headache or Minor Fever Stop: 03/07/20 10:00 Al Hydrox/Mg Hydrox/Simethicone (Aluminum/Magnesium Susp 30 Ml Udc) 30 ml PO Q4H PRN PRN Reason: GI Upset Stop: 03/07/20 10:00 Bismuth Subsalicylate (Bismuth Subsalicylate Per Ml Omnicell Charge) 15 ml PO PRN PRN PRN Reason: Loose Stool Stop: 03/07/20 10:00 Clonazepam (Clonazepam 1 Mg Tab) 1 mg PO BID [facility] Stop: 03/07/20 20:59 Last Admin: 02/10/20 08:39 Dose: 1 mg Documented by: Docusate Sodium (Docusate Sodium 100 Mg Cap) 100 mg PO BID [facility] Stop: 03/08/20 08:59 Last Admin: 02/10/20 08:39 Dose: 100 mg Documented by: Hydroxyzine HCl (Hydroxyzine Hcl 25 Mg Tab) 50 mg PO HSZ PRN PRN Reason: Insomnia Stop: 03/07/20 10:00 Last Admin: 02/10/20 01:33 Dose: 50 mg Documented by: Hydroxyzine HCl (Hydroxyzine Hcl 25 Mg Tab) 25 mg PO Q4H PRN PRN Reason: Anxiety Stop: 03/07/20 10:00 Last Admin: 02/10/20 05:13 Dose: 25 mg Documented by: Lamotrigine (Lamotrigine 100 Mg Tab) 200 mg PO QAM [facility] Stop: 03/08/20 08:59 Last Admin: 02/10/20 08:39 Dose: 200 mg Documented by: Magnesium Hydroxide (Magnesium Hydroxide Susp 30 Ml Udc) 30 ml PO DAILY PRN PRN Reason: Constipation Stop: 03/07/20 10:00 Last Admin: 02/08/20 09:53 Dose: 30 ml Documented by: Miscellaneous (Remove Nicoderm Patch) 1 ea N/A DAILY@0859 [facility] Stop: 03/08/20 08:58 Last Admin: 02/10/20 08:41 Dose: 1 ea Documented by: Nicotine (Nicotine 14 Mg/24 Hr Patch) [facility] Stop: 03/08/20 08:59 Last Admin: 02/10/20 08:39 Dose: 14 mg Documented by: Nicotine Polacrilex (Nicotine Polacrilex 2 Mg Gum) 1 piece MT Q2H PRN PRN Reason: NICOTINE CRAVINGS Stop: 03/07/20 10:05 Last Admin: 02/10/20 08:49 Dose: 1 piece Documented by: Olanzapine (Olanzapine 2.5 Mg Tab) 2.5 mg PO Q4H PRN PRN Reason: rich/anxiety Stop: 03/08/20 11:29 Last Admin: 02/10/20 07:00 Dose: 2.5 mg Documented by: Olanzapine (Olanzapine 10 Mg Tab) 10 mg PO HS [facility] Stop: 03/10/20 21:59 Last Admin: 02/09/20 20:54 Dose: 10 mg Documented by: Sodium Chloride (Sodium Chloride 0.65% Na Soln 45 Ml ([place])) 1 - 2 sprays NA PRN PRN PRN Reason: Nasal Dryness/Congestion Stop: 03/07/20 10:00 Mental Health & Subst Abuse Tx Psychiatrist Name of Psychiatrist: Dr. Maite Ambriz Psychiatrist's Therapist Name of Therapist: None Therapist's Date of Therapist Appointment: 02/16/20 Time of Therapist Appointment: 11:00am Therapy Appointment Comment: telehealth Special Projects Coordinator Name of Special Projects Coordinator: None Post Discharge Appointments Primary Care Physician Name Of Family Doctor: Dr. Marlene Ambriz
[2020-02-10] MEDS: clonazePAM 0.5 MG TAB PO SCH (20:59)
[2020-02-10] MEDS: OLANZapine 10 MG TAB PO SCH (21:04)
[2020-02-10] MEDS: MAGNESIUM HYDROXIDE SUSP 30 ML UDC PO PRN (21:04)
[2020-02-11] MEDS: OLANZAPINE 2.5 MG TAB PO PRN ×3 (00:49→14:13)
[2020-02-11] MEDS: NICOTINE POLACRILEX 2 MG GUM MT PRN ×5 (07:35→21:49)
[2020-02-11] MEDS: NICOTINE 14 MG/24 HR PATCH TD SCH (08:43)
[2020-02-11] MEDS: lamoTRIgine 100 MG TAB PO SCH (08:43)
[2020-02-11] MEDS: clonazePAM 0.5 MG TAB PO SCH ×2 (08:43→21:48)
[2020-02-11] MEDS: DOCUSATE SODIUM 100 MG CAP PO SCH ×2 (08:44→21:47)
--- NOTE | 2020-02-11 09:54 | Psychiatric Progress Note ---
Date of Service February 11, 2020 Impression / Recommendations Impression 29-year-old female with a history of bipolar symptomatology beginning in early teenage years who sounds to have a hyperthymic baseline, recently manic for 3 to 4 months with severe insomnia persisting for the past 5 days experiencing multimodal hallucinations, grandiosity, and requesting psychiatric hospitalization for stabilization. On presentation, patient had demonstrated persistent insomnia, psychotic symptoms, and impaired decision-making. Pt was agreeable with medication adjustments and cross-taper from aripiprazole to olanzapine has occurred. We are titrating dose as indicated. Pt continues to be concerned about inconsistent sleep, so trazodone was increased to 100mg qHS. While she is making progress, her mood and sleep are still unstable which increases risk of rapid decompensation if she is discharged prematurely. She presently requires inpatient psychiatric hospitalization for mood stabilization. (1) Bipolar disorder: 02/05 -Patient admitted on voluntary status to the behavioral health unit -She will be encouraged to participate in unit programming when appropriate however we will first prioritize sleep -In effort to facilitate antimanic effect of sleep acutely, she was written for 5 mg of Zyprexa now followed by Zyprexa 5 mg nightly. Risks and benefits of this medication were reviewed and accepted. -She was provided with brief psychoeducation regarding underlying bipolar illness and treatment. She is adequately mood stabilized on Abilify and Lamictal. Discussed options including further titration of Lamictal, more potent alternative to the Abilify, or conversion of Lamictal to Depakote or perhaps a lithium retrial. Hopefully she will get a good nights rest and be feeling a little more composed and consolidated tomorrow to discuss these potential treatment interventions in more detail. For now, she will be continued on her home dose of Abilify and Lamictal unchanged -Discontinue trazodone due to lack of perceived benefit and to minimize potential activating effect of serotonergic activity -We will continue the clonazepam 1 mg p.o. twice daily unchanged for now as well. She did seem to demonstrate a little psychological dependency regarding this medication -Continue home dose of hydroxyzine unchanged -She will need fasting labs ordered prior to discharge however I will defer that to another day as I do not want to have the labelling machine operator wake her early in the morning -Patient requests family meeting with parents which will be facilitated -Coordinate care with outpatient providers 02/06 - Pt has had several doses of prn olanzapine at this time, and reports noticeable benefit from the medication. She expresses desire to switch to olanzapine as "I was taking my medication every day, it just wasn't working." Will taper aripiprazole over the next day or so, and continue prn olanzapine. Can begin titration of scheduled dosing of olanzapine as tolerated. - Pt reported feeling too anxiety/unstable to begin taper of clonazepam at this time. She expresses desire to eventually taper the medication and discontinue it altogether. - Will order fasting glucose and lipid panel for tomorrow morning. - Pt requesting a family meeting with her parents and brother be scheduled - Will need referral for outpatient therapy and proper coordination of care with her outpatient psychiatrist. 02/07 - Titrating olanzapine to 7.5mg this evening, will reduce aripiprazole to 5mg tomorrow morning and then discontinue. Continue to offer prn olanzapine for racing thoughts and other symptoms of rich/mood instability. - Fasting glucose and lipid panel reviewed - all values WNL - Family meeting scheduled with parents and brother for tomorrow afternoon - Continue to encourage attendance of group and recreational programming 02/08 -Increase olanzapine to 10 mg at bedtime to target mood stabilization and sleep, and discontinue aripiprazole. -Family meeting with parents today. -Contacted outpatient psychiatrist Dr. Tayler Lam and coordinated care. Patient being referred for psychotherapy. 02/09 - Continue olanzapine at 10mg qHS - patient continues to utilized prn dosing of olanzapine. We discussed potential to track patterns of dosing to added scheduled doses of the medication in the future. - Pt agreeable with beginning clonazepam taper at this time. Will reduce clonazepam to 0.5mg BID, with discuss that taper to discontinuation is being encouraged. - Reviewed strong recommendation for medication compliance, specifically with concerns for serious side effects related to intermittent dosing of high-dose lamotrigine. Pt maintains she is compliant with medications. - Family meeting held yesterday via phone with parents and brother - patient feels it was helpful and supportive. - Discussed recommendation that patient not begin her new job until she is cleared to do so by her outpatient psychiatrist - Still need to solidify appointment with outpatient psychiatrist and set-up treatment with an outpatient therapist 02/10 - Pt continues to report improvement in mood and clarity of thought (though anxiety/racing thoughts are still occurring and she is still routinely requesting prns of olanzapine). Pt's primary concern continues to be poor sleep. We discussed titration of olanzapine to 5mg qAM and 10mg qHS - reducing availability to prn dosing to 2.5mg BID. - Will resume trazodone, but increase to 100mg qHS for now. Pt reports primary issues is not falling asleep, but rather maintaining sleep. - Discussed potential to return to lithium. Pt states use of lithium did affect her thyroid in the past, and she would prefer to not resume the medication at this time. - Pt is reportedly to be seen by her PCP for hospital discharge appointment, and will later be rescheduled with her outpatient psychiatrist. - Therapy services have been established. 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 Chief Complaint "I'm ok...but all my friends left." Review of Systems Notes Constitutional: reports poor sleep last evening Cardiovascular: denied Respiratory: denied Gastrointestinal: denied Neurological: denied Psychiatric: denies symptoms other than stated above Total of at least 10 systems reviewed, pertinent positives as above and in HPI. Sleep Information Total Hours of Sleep: 4.5 Meal Information Percent Meal Consumed - Breakfast: 100 Percent Meal Consumed - Lunch: 100 Percent Meal Consumed - Dinner: 100 Nutrition Comment: per meal record Subjective Subjective Patient was seen & assessed and interval progress reviewed with treatment team. Staff report the patient has been participating in group programming. Pt continues to have difficulty returning to sleep after she wakes during the night, often requesting to do other activities on the unit. Pt was seen today to assess progress since admission. Pt states "I'm ok...but all my friends left." Pt appears to be a bit frustrated, and has obviously been crying earlier today as her eyes are red. She is open and honest about various frustrations. She states "my meds aren't working, I can't stay asleep." We discussed various medication options, and agreed upon scheduling a morning dose of olanzapine as well as resuming trazodone but at a higher dose. Pt also shares "my boyfriend called me last night, he told me his dad said he should break up with me. You know, because I have bipolar disorder, and his life will be seeing me in and out of the hospital." Pt becomes tearful as she shares this information. She states "I just really struggle with being labeled by my disorder, but I'm trying to focus on positive thought patterns and not defining myself by my illness." She also shares that she is planning to email her new employer, and decline the position that she was offered to start a new job. She states "I just really don't think it will be good for me right now. Not when I'm still like this." We discussed patient's request for discharge as soon as possible and frustration that she is still in the hospital. She is also, however, able to acknowledge that she is not yet demonstrating stability with regard to mood and sleep and recognizes more time in the hospital would be helpful. Pt continues to get prns of olanzapine, for "times of increased energy, like excited energy." She feels the olanzapine has been helpful and is optimistic things will improve in the next few days. Pt denied other needs or concerns at this time. Physical Exam Psychiatric Orientation: alert, oriented x 3 and cooperative (pleasant and honest during conversation) Apperance: appropriately dressed (casually, wearing a sweater and scrub pants), appropriately groomed and appeared stated age Eye Contact: good eye contact Motor Behavior: steady gait and station and no abnormal motor movements Speech: normal rate/rhythm/volume of speech Affect: + tearful affect and + blunted affect (appearing subdued) Admits she just had a somewhat emotional conversation with staff Mood: + anxious mood (reports some anxiety and frustration regarding discharge planning) Thought Process: goal directed thought process and clear/coherent thought process Thought Content: + preoccupation (still focused on discharge) and reality based without delusions; no hopelessness and no worthlessness Suicidal Thoughts: denies suicidal thoughts and denies suicidal intent Homicidal Thoughts: denies homicidal thoughts Hallucinations: no auditory hallucinations and no visual hallucinations Cognition: recent memory grossly intact, attention grossly intact and language grossly intact Estimated Intelligence: consistent with education level Insight: + fair insight Judgement: + fair judgement Vital Signs (Past 24 Hours) Last Vital Signs Temp 36.7 C 02/11/20 06:42 Pulse 90 02/11/20 06:43 Resp 18 02/11/20 06:42 BP 100/71 02/11/20 06:43 Pulse Ox 99 02/06/20 10:15 . Results & Data ([facility]) Current Inpatient Medications Current Inpatient Medications: Current Inpatient Medications Acetaminophen (Acetaminophen 325 Mg Tab) 650 mg PO Q4H PRN PRN Reason: Headache or Minor Fever Stop: 03/07/20 10:00 Al Hydrox/Mg Hydrox/Simethicone (Aluminum/Magnesium Susp 30 Ml Udc) 30 ml PO Q4H PRN PRN Reason: GI Upset Stop: 03/07/20 10:00 Bismuth Subsalicylate (Bismuth Subsalicylate Per Ml Omnicell Charge) 15 ml PO PRN PRN PRN Reason: Loose Stool Stop: 03/07/20 10:00 Clonazepam (Clonazepam 0.5 Mg Tab) 0.5 mg PO BID GLEN Stop: 03/11/20 20:59 Last Admin: 02/11/20 08:43 Dose: 0.5 mg Documented by: Docusate Sodium (Docusate Sodium 100 Mg Cap) 100 mg PO BID GLEN Stop: 03/08/20 08:59 Last Admin: 02/11/20 08:44 Dose: 100 mg Documented by: Hydroxyzine HCl (Hydroxyzine Hcl 25 Mg Tab) 50 mg PO HSZ PRN PRN Reason: Insomnia Stop: 03/07/20 10:00 Last Admin: 02/10/20 01:33 Dose: 50 mg Documented by: Hydroxyzine HCl (Hydroxyzine Hcl 25 Mg Tab) 25 mg PO Q4H PRN PRN Reason: Anxiety Stop: 03/07/20 10:00 Last Admin: 02/11/20 03:31 Dose: 25 mg Documented by: Lamotrigine (Lamotrigine 100 Mg Tab) 200 mg PO QAM GLEN Stop: 03/08/20 08:59 Last Admin: 02/11/20 08:43 Dose: 200 mg Documented by: Magnesium Hydroxide (Magnesium Hydroxide Susp 30 Ml Udc) 30 ml PO DAILY PRN PRN Reason: Constipation Stop: 03/07/20 10:00 Last Admin: 02/10/20 21:04 Dose: 30 ml Documented by: Miscellaneous (Remove Nicoderm Patch) 1 ea N/A [id number] [facility] Stop: 03/08/20 08:58 Last Admin: 02/11/20 08:44 Dose: 1 ea Documented by: Nicotine (Nicotine 14 Mg/24 Hr Patch) 14 mg TD QAM [facility] Stop: 03/08/20 08:59 Last Admin: 02/11/20 08:43 Dose: 14 mg Documented by: Nicotine Polacrilex (Nicotine Polacrilex 2 Mg Gum) 1 piece MT Q2H PRN PRN Reason: NICOTINE CRAVINGS Stop: 03/07/20 10:05 Last Admin: 02/11/20 07:35 Dose: 1 piece Documented by: Olanzapine (Olanzapine 2.5 Mg Tab) 2.5 mg PO Q4H PRN PRN Reason: rich/anxiety Stop: 03/08/20 11:29 Last Admin: 02/11/20 07:27 Dose: 2.5 mg Documented by: Olanzapine (Olanzapine 10 Mg Tab) 10 mg PO HS [facility] Stop: 03/10/20 21:59 Last Admin: 02/10/20 21:04 Dose: 10 mg Documented by: Sodium Chloride (Sodium Chloride 0.65% Na Soln 45 Ml (M[place]ws)) 1 - 2 sprays NA PRN PRN PRN Reason: Nasal Dryness/Congestion Stop: 03/07/20 10:00 Mental Health & Subst Abuse Tx Psychiatrist Name of Psychiatrist: Dr. Maite Ambriz Psychiatrist's Therapist Name of Therapist: None Therapist's Date of Therapist Appointment: 02/16/20 Time of Therapist Appointment: 11:00am Therapy Appointment Comment: telehealth Theater Set Production Designer Name of Theater Set Production Designer: None Post Discharge Appointments Primary Care Physician Name Of Family Doctor: Dr. Marlene Ambriz
[2020-02-11] MEDS: MAGNESIUM HYDROXIDE SUSP 30 ML UDC PO PRN (11:09)
[2020-02-11] MEDS ORDERED: OLANZAPINE 2.5 MG TAB PO PRN (14:55)
[2020-02-11] MEDS: OLANZapine 10 MG TAB PO SCH (21:48)
[2020-02-11] MEDS ORDERED: TRAZODONE HCL 100 MG TAB PO SCH (22:00)
[2020-02-12] MEDS ORDERED: OLANZapine 5 MG TABLET PO SCH (09:00)
[2020-02-12] MEDS: DOCUSATE SODIUM 100 MG CAP PO SCH (09:24)
[2020-02-12] MEDS: clonazePAM 0.5 MG TAB PO SCH (09:24)
[2020-02-12] MEDS: lamoTRIgine 100 MG TAB PO SCH (09:25)
[2020-02-12] MEDS: NICOTINE 14 MG/24 HR PATCH TD SCH (09:27)
--- NOTE | 2020-02-12 09:31 | Discharge Summary ---
Date of Service February 12, 2020 History of Present Illness Per admitting provider: Patient presented through the [facility] ER on 02/06/2020 requesting psychiatric admission for complaint of rich and insomnia. In the ER she reported feeling manic for 3 months, not sleeping, having hallucinations, felt unable to care for herself appropriately and expressed feelings of hopelessness. She reported that she had been to 3 different facilities requesting psychiatric admission for medication adjustment but was declined admission, supposedly due to inadequate criteria. She noted prior psychiatric hospitalization at [place] last year and [place] about 1-1/2 months ago. She is medically assessed and cleared by Dr Nelson. Home medications noted as Abilify 15 mg daily, clonazepam 1 mg twice daily, hydroxyzine 50 mg twice daily, Lamictal 200 mg daily, and trazodone 50 mg nightly. Patient reports she has been on essentially the same combination of medicines since she was diagnosed with bipolar disorder about 1-1/2 years ago at [facility]. Unfortunately she has not received adequate mood stabilization from her current regimen. She follows with Dr Lam for outpatient psychiatry at [facility]. Patient reports onset of manic symptoms in her teenage years however they seemed to go into re mission until about a year and a half ago when she decompensated again. She describes, as a young adult, having a hyperthymic baseline with a very busy and creative mind. She tends not to appreciate that she is racing or talking quickly but others will comment about her animated demeanor. She acknowledges feelings of grandiosity, distractibility, impulsive spending, excessive energy, rapid speech, and insomnia. Additionally she notes hallucinations associated with rich such as seeing buildings crumbling around her, envisioning a man picking sam in the middle of the [place], and experienced auditory hallucinations in the ER this morning. Denies command hallucinations. Denies suicidal ideation or intent. Denies history of self-injurious behavior. Mood cycles tend to be fairly lengthy. Manias for last 4 months followed by 4 months of depression before perhaps 4 to 6 months of a more euthymic mood state. She reports 1 panic attack in her lifetime that was situational. Otherwise does not perceive herself as an overly anxious person. She does have perfectionistic drives. She reports good compliance with her medication however notes that her family thinks that she is not compliant and she comments that she has taken more of her sedating medicines than prescribed at times in an effort to go to sleep. She reports almost no sleep in the last 5 days apart from a few hours last evening after smoking marijuana on the urging of a friend. Physical Exam Mental Examination See admission H&P and DOD assessment. Vital Signs (Past 24 Hours) Last Vital Signs Temp 36.5 C 02/12/20 06:19 Pulse 111 H 02/12/20 06:20 Resp 18 02/12/20 06:19 BP 100/67 02/12/20 06:20 Pulse Ox 99 02/06/20 10:15 . Principal Diagnosis bipolar I disorder, most recent episode manic Psychiatric Data Was admitted to locked inpatient unit for severe insomnia and roman. Started on Zyprexa in place of Abilify with dose titration. Klonopin was decreased over time. A family session was held re: living situation upon discharge and per SW all in agreement for her to live with a friend for a period of time. She had a lso just accepted a new job that was potentially triggering to her condition so she declined to HR with staff support. Sleep was improved with trazodone prior to discharge. Patient reliably states that unsure whether she picked up Klonopin or location. Confirmed with [facility] in [place] that 60 tabs of 1 mg strength Klonopin picked up 02/01 as noted in PDMP database query. Patient provided a very short supply of Klonopin in case unable to locate and additional taper is needed prior to appt at [facility] as she is agreeable to taper anyway now that sleep improved. Reviewed her need for ongoing monitoring of fasting labs and risk of TD with atypical and encouraged to use reliable control due to potential increase defects. Made aware that many hormonal contraceptives can have interactions with lamictal. Day of Discharge Assessment The patient is here on a voluntary, has consistently denied roman for days and is requesting discharge. She is cooperative with staff and her treatment plan and sleep is normalizing, ie there is no indication for involuntary commitment and she is stable for discharge to outpatient level of care. She verbalizes safety plan and has structured plans for the weekend. Her insight is improved and she contracts to take medications as prescribed at discharge. On MSE she is alert and cooperative. Her affect is pleasant and speech is normal in rate and volume. Her thoughts are organized and she denies SI/HI/roman. There are no abnormal motor movements or restlessness. Transition of Care Transition Of Care Record: was reviewed with the patient Advance Directives Advance Directives Information Provided: Yes Advance Directives: No Mental Health Advance Directive: No Advance Directives on File: No Living Will: No Power of [place] Press Operator: No Advance Directives Reason:: Declines as Mental Health Visit. 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) Supportive Family: Yes Tobacco Cessation at Discharge Tobacco Cessation Medication Prescribed at Discharge: Offered & Pt Refused Total Time Total Time Spent: Greater Than 30 Minutes Discharge Data Lab Results 02/06/20 02/06/20 02/06/20 04:50 04:50 04:50 WBC RBC Hgb Hct MCV MCH MCHC Plt Count Immature Gran % (Auto) Neut % (Auto) Lymph % (Auto) Woodward % (Auto) Eos % (Auto) Baso % (Auto) Neut # (Auto) Lymph # (Auto) Woodward # (Auto) Eos # (Auto) Baso # (Auto) Immature Gran # (Auto) Sodium Potassium Chloride Carbon Dioxide Anion Gap BUN Creatinine Est Cr Clr Drug Dosing Est GFR ( Amer) Est GFR (Non-Af Amer) BUN/Creatinine Ratio Glucose Fasting Glucose Calcium Total Bilirubin AST ALT Alkaline Phosphatase Total Protein Albumin Globulin Albumin/Globulin Ratio Triglycerides Cholesterol LDL Cholesterol, Calc VLDL Cholesterol, Calc HDL Cholesterol Cholesterol/HDL Ratio TSH HCG, Qual Urine Color Yellow Urine Appearance Clear Urine pH 6.0 Ur Specific Wise <= 1.005 Urine Protein Negative Urine Glucose (UA) Negative Urine Ketones Negative Urine Blood Negative Urine Nitrite Negative Urine Bilirubin Negative Urine Urobilinogen Negative Ur Leukocyte Esterase 2+ H Urine RBC 0-4 Urine WBC 10-30 H Ur Epithelial Cells 20-30 H Urine Bacteria Negative Urine Test Salicylates Urine Opiates Screen Neg Ur Methadone, Qual Neg Acetaminophen Urine Barbiturates Neg Ur Phencyclidine (PCP) Neg U Amphetamin/Meth Scrn Neg MDMA (Ecstasy) Screen Neg U Benzodiazepines Scrn Neg Ur Cocaine Metabolite Neg U Marijuana (THC) Screen Pos H U Marijuana THC Carboxy 78 H Drug Screen Comment SEE NOTE Ethyl Alcohol mg/dL 02/06/20 02/06/20 02/06/20 04:50 05:10 05:10 WBC 6.84 RBC 4.33 Hgb 13.0 Hct 36.9 L MCV 85.2 MCH 30.0 MCHC 35.2 Plt Count 231 Immature Gran % (Auto) 0.3 Neut % (Auto) 64.2 Lymph % (Auto) 26.8 Woodward % (Auto) 6.6 Eos % (Auto) 1.8 Baso % (Auto) 0.3 Neut # (Auto) 4.40 Lymph # (Auto) 1.83 Woodward # (Auto) 0.45 Eos # (Auto) 0.12 Baso # (Auto) 0.02 Immature Gran # (Auto) 0.02 Sodium 140 Potassium 3.7 Chloride 111 H Carbon Dioxide 22 Anion Gap 7.0 BUN 11 Creatinine 0.84 Est Cr Clr Drug Dosing 97.0 Est GFR ( Amer) 109.6 Est GFR (Non-Af Amer) 94.6 BUN/Creatinine Ratio 12.7 Glucose 108 H Fasting Glucose Calcium 8.1 L Total Bilirubin 0.5 AST 11 L ALT 17 Alkaline Phosphatase 56 Total Protein 7.2 Albumin 3.5 Globulin 3.7 Albumin/Globulin Ratio 0.9 Triglycerides Cholesterol LDL Cholesterol, Calc VLDL Cholesterol, Calc HDL Cholesterol Cholesterol/HDL Ratio TSH 1.590 HCG, Qual Urine Color Urine Appearance Urine pH Ur Specific Wise Urine Protein Urine Glucose (UA) Urine Ketones Urine Blood Urine Nitrite Urine Bilirubin Urine Urobilinogen Ur Leukocyte Esterase Urine RBC Urine WBC Ur Epithelial Cells Urine Bacteria Urine Test Negative Salicylates Urine Opiates Screen Ur Methadone, Qual Acetaminophen Urine Barbiturates Ur Phencyclidine (PCP) U Amphetamin/Meth Scrn MDMA (Ecstasy) Screen U Benzodiazepines Scrn Ur Cocaine Metabolite U Marijuana (THC) Screen U Marijuana THC Carboxy Drug Screen Comment Ethyl Alcohol mg/dL 02/06/20 02/06/20 02/06/20 05:10 05:10 05:10 WBC RBC Hgb Hct MCV MCH MCHC Plt Count Immature Gran % (Auto) Neut % (Auto) Lymph % (Auto) Woodward % (Auto) Eos % (Auto) Baso % (Auto) Neut # (Auto) Lymph # (Auto) Woodward # (Auto) Eos # (Auto) Baso # (Auto) Immature Gran # (Auto) Sodium Potassium Chloride Carbon Dioxide Anion Gap BUN Creatinine Est Cr Clr Drug Dosing Est GFR ( Amer) Est GFR (Non-Af Amer) BUN/Creatinine Ratio Glucose Fasting Glucose Calcium Total Bilirubin AST ALT Alkaline Phosphatase Total Protein Albumin Globulin Albumin/Globulin Ratio Triglycerides Cholesterol LDL Cholesterol, Calc VLDL Cholesterol, Calc HDL Cholesterol Cholesterol/HDL Ratio TSH HCG, Qual Negative Urine Color Urine Appearance Urine pH Ur Specific Wise Urine Protein Urine Glucose (UA) Urine Ketones Urine Blood Urine Nitrite Urine Bilirubin Urine Urobilinogen Ur Leukocyte Esterase Urine RBC Urine WBC Ur Epithelial Cells Urine Bacteria Urine Test Salicylates < 1.7 L Urine Opiates Screen Ur Methadone, Qual Acetaminophen < 2 L Urine Barbiturates Ur Phencyclidine (PCP) U Amphetamin/Meth Scrn MDMA (Ecstasy) Screen U Benzodiazepines Scrn Ur Cocaine Metabolite U Marijuana (THC) Screen U Marijuana THC Carboxy Drug Screen Comment Ethyl Alcohol mg/dL 50.0 H 02/08/20 07:38 WBC RBC Hgb Hct MCV MCH MCHC Plt Count Immature Gran % (Auto) Neut % (Auto) Lymph % (Auto) Woodward % (Auto) Eos % (Auto) Baso % (Auto) Neut # (Auto) Lymph # (Auto) Woodward # (Auto) Eos # (Auto) Baso # (Auto) Immature Gran # (Auto) Sodium Potassium Chloride Carbon Dioxide Anion Gap BUN Creatinine Est Cr Clr Drug Dosing Est GFR ( Amer) Est GFR (Non-Af Amer) BUN/Creatinine Ratio Glucose Fasting Glucose 94 Calcium Total Bilirubin AST ALT Alkaline Phosphatase Total Protein Albumin Globulin Albumin/Globulin Ratio Triglycerides 133 Cholesterol 136 LDL Cholesterol, Calc 55 VLDL Cholesterol, Calc 27 HDL Cholesterol 54 Cholesterol/HDL Ratio 3 TSH HCG, Qual Urine Color Urine Appearance Urine pH Ur Specific Wise Urine Protein Urine Glucose (UA) Urine Ketones Urine Blood Urine Nitrite Urine Bilirubin Urine Urobilinogen Ur Leukocyte Esterase Urine RBC Urine WBC Ur Epithelial Cells Urine Bacteria Urine Test Salicylates Urine Opiates Screen Ur Methadone, Qual Acetaminophen Urine Barbiturates Ur Phencyclidine (PCP) U Amphetamin/Meth Scrn MDMA (Ecstasy) Screen U Benzodiazepines Scrn Ur Cocaine Metabolite U Marijuana (THC) Screen U Marijuana THC Carboxy Drug Screen Comment Ethyl Alcohol mg/dL Hospital Course (1) Bipolar disorder: 02/05 -Patient admitted on voluntary status to the behavioral health unit -She will be encouraged to participate in unit programming when appropriate however we will first prioritize sleep -In effort to facilitate antimanic effect of sleep acutely, she was written for 5 mg of Zyprexa now followed by Zyprexa 5 mg nightly. Risks and benefits of this medication were reviewed and accepted. -She was provided with brief psychoeducation regarding underlying bipolar illness and treatment. She is adequately mood stabilized on Abilify and Lamictal. Discussed options including further titration of Lamictal, more potent alternative to the Abilify, or conversion of Lamictal to Depakote or perhaps a lithium retrial. Hopefully she will get a good nights rest and be feeling a little more composed and consolidated tomorrow to discuss these potential treatment interventions in more detail. For now, she will be continued on her home dose of Abilify and Lamictal unchanged -Discontinue trazodone due to lack of perceived benefit and to minimize potential activating effect of serotonergic activity -We will continue the clonazepam 1 mg p.o. twice daily unchanged for now as well. She did seem to demonstrate a little psychological dependency regarding this medication -Continue home dose of hydroxyzine unchanged -She will need fasting labs ordered prior to discharge however I will defer that to another day as I do not want to have the dairy laboratory technician wake her early in the morning -Patient requests family meeting with parents which will be facilitated -Coordinate care with outpatient providers 02/06 - Pt has had several doses of prn olanzapine at this time, and reports noticeable benefit from the medication. She expresses desire to switch to olanzapine as "I was taking my medication every day, it just wasn't working." Will taper aripiprazole over the next day or so, and continue prn olanzapine. Can begin titration of scheduled dosing of olanzapine as tolerated. - Pt reported feeling too anxiety/unstable to begin taper of clonazepam at this time. She expresses desire to eventually taper the medication and discontinue it altogether. - Will order fasting glucose and lipid panel for tomorrow morning. - Pt requesting a family meeting with her parents and brother be scheduled - Will need referral for outpatient therapy and proper coordination of care with her outpatient psychiatrist. 02/07 - Titrating olanzapine to 7.5mg this evening, will reduce aripiprazole to 5mg tomorrow morning and then discontinue. Continue to offer prn olanzapine for racing thoughts and other symptoms of rich/mood instability. - Fasting glucose and lipid panel reviewed - all values WNL - Family meeting scheduled with parents and brother for tomorrow afternoon - Continue to encourage attendance of group and recreational programming 02/08 -Increase olanzapine to 10 mg at bedtime to target mood stabilization and sleep, and discontinue aripiprazole. -Family meeting with parents today. -Contacted outpatient psychiatrist Dr. Tayler Lam and coordinated care. Patient being referred for psychotherapy. 02/09 - Continue olanzapine at 10mg qHS - patient continues to utilized prn dosing of olanzapine. We discussed potential to track patterns of dosing to added scheduled doses of the medication in the future. - Pt agreeable with beginning clonazepam taper at this time. Will reduce clonazepam to 0.5mg BID, with discuss that taper to discontinuation is being encouraged. - Reviewed strong recommendation for medication compliance, specifically with concerns for serious side effects related to intermittent dosing of high-dose lamotrigine. Pt maintains she is compliant with medications. - Family meeting held yesterday via phone with parents and brother - patient feels it was helpful and supportive. - Discussed recommendation that patient not begin her new job until she is cleared to do so by her outpatient psychiatrist - Still need to solidify appointment with outpatient psychiatrist and set-up treatment with an outpatient therapist 02/10 - Pt continues to report improvement in mood and clarity of thought (though anxiety/racing thoughts are still occurring and she is still routinely req uesting prns of olanzapine). Pt's primary concern continues to be poor sleep. We discussed titration of olanzapine to 5mg qAM and 10mg qHS - reducing availability to prn dosing to 2.5mg BID. - Will resume trazodone, but increase to 100mg qHS for now. Pt reports primary issues is not falling asleep, but rather maintaining sleep. - Discussed potential to return to lithium. Pt states use of lithium did affect her thyroid in the past, and she would prefer to not resume the medication at this time. - Pt is reportedly to be seen by her PCP for hospital discharge appointment, and will later be rescheduled with her outpatient psychiatrist. - Therapy services have been established. Mental Health & Subst Abuse Tx Psychiatrist Name of Psychiatrist: Dr. Maite Ambriz Psychiatrist's Therapist Name of Therapist: Maria E Fernando INFORMATION TECHNOLOGY ARCHITECT Therapist's Date of Therapist Appointment: 02/16/20 Time of Therapist Appointment: 11:00am Therapy Appointment Comment: telehealth Rv Service Technician Name of Rv Service Technician: None Post Discharge Appointments Primary Care Physician Name Of Family Doctor: Dr. Sky- ([facility]) Primary Care Date of Appointment with PCP: 02/17/20 Time of Appointment with PCP: 10:05 Provider Appointment Comment: This is an inoffice appt, [facility] Smoking Cessation Counseling Tobacco Cessation Medication Prescribed at Discharge: Offered & Pt Refused Discharge Plan Discharge Items Patient Disposition: Home - Self-Care Reason For Visit: BIPOLAR 1 DISORDER Discharge Diagnosis: same Activity: Resume your previous activity Non-emergency contact: Psychiatrist and Therapist Call non-emergency contact if: you have any medication questions and your symptoms worsen Follow-up/Referrals: Daisha Thornton MD [Primary Care Provider] - Diet: Regular Addtl Attending Provider Instructions: SPECIAL CARE INSTRUCTIONS: 1. Follow through with your scheduled aftercare appointments. If unable to keep an appointment, please call to reschedule. 2. Take your medication only as prescribed. Medication should not be changed or stopped without the approval of your doctor. In the event of worsening symptoms or concerns about side effects, contact your doctor immediately. 3. Utilize new healthy coping skills, anger management skills, and stress management skills learned during your hospitalization. Journal feelings and process them with a support person. Identify stressors or situations that may result in relapse, deterioration or inappropriate behaviors and develop a plan to deal with those issues. 4. If your coping skills are ineffective and you are in crisis, contact your outpatient providers for direction. If unable to reach your providers, please call the CAN HELP LINE AT or go to the closest Emergency Room. 5. Avoid alcohol and un-prescribed drugs. 6. You have been provided with the Mental Health Advance Directives Pamphlet for your review. AFTERCARE APPOINTMENTS: * Please call your insurance company prior to your scheduled appointment to confirm your aftercare providers are covered. Take your insurance information to your appointments. WHO TO CALL AND WHEN: Medical Emergencies: For questions or emergencies related to your hospital stay, please contact the Inpatient Behavioral Health Unit at [phone]. A ocean fishing guide is on-call 13/01 for the Behavioral Health Unit for emergencies At any time you feel your situation is an emergency, you may also call 911 immediately. Your Doctors Instructions noted above were prepared by provider Mikaela Ramos MD. Addtl Celebrity Chef Entrepreneur Media Personality Provider Instructions: We are not able to provide a full refill of Klonopin as BALJEET Schaefer confirms that #60 of 1 mg tabs was dispensed on 02/01 and picked up. I've provided 4 tabs of Klonopin 0.5 mg to give you time to locate the prescription after discharge OR safely continue taper. If you are able to use the 1 mg tablets to continue until follow up at [facility], please cut them in half as your dose was decreased in the hospital. As discussed, do not combine with sedating substances and do not drive or operate machinery. Pending Studies at Discharge: No Stand-Alone Forms: My [facility] [employer], Smoking Cessation, Suicide Prevention Resources Medications and DC Order Prescriptions: New clonazepam 0.5 mg Tablet 0.5 mg PO DAILY 2 Days Qty: 4 RF: 0 olanzapine 5 mg Tablet See Rx Instructions .ROUTE .COMPLEX Qty: 45 RF: 0 olanzapine 10 mg Tablet 10 mg PO HS 30 Days Qty: 30 RF: 0 trazodone 100 mg Tablet 100 mg PO HS 30 Days Qty: 30 RF: 0 Continued hydroxyzine HCl 50 mg tablet 50 mg PO BID PRN (Reason: Anxiety) RF: 0 lamotrigine [Lamictal] 200 mg tablet 200 mg PO DAILY RF: 0 Discontinued clonazepam [Klonopin] 1 mg tablet 1 mg PO BID RF: 0 trazodone 50 mg tablet 50 mg PO HS RF: 0 aripiprazole [Abilify] 15 mg tablet 15 mg PO DAILY RF: 0 Discharge Orders: Discharge Order (Routine); Ordered 02/12/20 Ordered By: Mikaela Ramos Admission Data Admit Date/Time: 02/06/20 08:59 Attending Provider: Rosanna Mcknight Admit Provider: Hieu Matthews Primary Care Provider: Daisha Thornton Other Interventions: PSY Interdisciplinary Discharge Planning Last Done: 02/11/20 15:28 Coding Level of Care Code 65050 D/C day mgmt > 30 min Diagnoses Bipolar disorder F31.9
== END 2020-02-12 14:00 | disposition home or self-care (01) | DRG 885 ==
LOC: ED 04:37 → 3S 08:59 → SUATTDRO 08:59 → 3S 09:34